=== PATIENT | male | born 1955 | race Caucasian/White ===

== ENCOUNTER 2019-01-20 11:49 | Outpatient (CLI) | payer BC, SELFPAY ==
[2019-01-21 15:33] LABS: Free PSA/PSA Ratio 0.14 ratio
== END 2019-01-20 12:09 ==
PROVIDERS: PCP Internal Medicine; Visit Provider Internal Medicine
DX: R97.20 Elevated prostate specific antigen [PSA] (principal)
CPT/HCPCS: 36415; 84154

== ENCOUNTER 2020-04-08 01:31 | Outpatient (CLI) | payer OTHER, SELFPAY ==
[2020-04-10 13:14] LABS: Free PSA/PSA Ratio 0.17 ratio
== END 2020-04-08 01:51 ==
PROVIDERS: PCP Internal Medicine; Visit Provider Internal Medicine
DX: R97.20 Elevated prostate specific antigen [PSA] (principal)
CPT/HCPCS: 36415; 84154

== ENCOUNTER 2020-05-25 11:14 | Outpatient (CLI) | payer OTHER, SELFPAY ==
[2020-05-27 14:03] LABS: PSA, Ultrasensitive 6.2 ng/mL (<= 4.5)
== END 2020-05-25 11:34 ==
PROVIDERS: PCP Internal Medicine; Visit Provider Surgery
DX: R97.20 Elevated prostate specific antigen [PSA] (principal)
CPT/HCPCS: 36415; 84153

== ENCOUNTER 2022-08-07 11:38 | Outpatient (CLI) | payer BC, SELFPAY ==
--- NOTE | 2022-08-07 11:15 | DI.RAD_ITS ---
Exam(s) XR KNEE LT 4V AP,LAT,KATERYNA,PAT EXAM: XR KNEE LT 4V AP,LAT,KATERYNA,PAT CLINICAL HISTORY: eval L knee pain - anterolateral. TECHNIQUE: 2D digital imaging was performed. Three views. COMPARISON: No exams were available for comparison FINDINGS: BONES: No acute fracture is present. No bony destructive lesion is seen. Minimal spurring at the art icular aspect of the patella. JOINTS: Joint spaces are maintained. The knee is normally aligned. No joint effusion is seen. SOFT TISSUE: Normal. IMPRESSION: Minimal patellofemoral degenerative changes. DATA REPOSITORY: RADIATION DOSE DELIVERED:
== END 2022-08-07 11:39 | disposition home or self-care (01) ==
LOC: DIORS 11:40
PROVIDERS: PCP Internal Medicine; Referring Provider Internal Medicine; Visit Provider Student in an Organized Health Care Education/Training Program
DX: M25.562 Pain in left knee (principal); M22.2X2 Patellofemoral disorders, left knee
CPT/HCPCS: 73564

== ENCOUNTER 2024-07-18 13:04 | Emergency (ER) | payer BC, SELFPAY ==
[2024-07-18 13:08] VITALS: BP 173/98; PULSE 85; RESP 18; TEMP 36.4; O2SAT 98
--- NOTE | 2024-07-18 13:15 | DI.RAD_ITS ---
Exam(s) XR RIBS LT W PA LAT CHEST EXAM: XR RIBS LT W PA LAT CHEST CLINICAL HISTORY: Fall, 1 month ago, re-injury 2 days ago TECHNIQUE: 2D digital imaging was performed. Seven images are obtained. COMPARISON: CR CHEST 2 VIEWS PA,LAT from 11/30/2012 FINDINGS: MEDIASTINUM: Normal. HEART: Normal. PULMONARY VASCULATURE: Normal. LUNGS: Clear. PLEURAL SPACE: No pleural effusion or pneumothorax. BONE:Within normal limits for the patient's age. LEFT RIBS: There are minimally displaced fractures involving the posterolateral aspects of the left 1 0th and 11th ribs. OTHER FINDINGS:Normal. IMPRESSION: 1. No acute pulmonary findings. 2. Minimally displaced left 10th and 11th rib fractures. 3. No pleural effusion or pneumothorax. DATA REPOSITORY: RADIATION DOSE DELIVERED:
--- NOTE | 2024-07-18 13:22 | ED.GENADUL_ITS ---
Discharge Plan Disposition Patient Disposition: Home Condition: Stable Discharge Details Clinical Impression: Fracture of two ribs of left side Primary Care Provider: STEPHEN PRATT ED Provider: Karen Pisano Home Meds and New Rx's Prescriptions: New lidocaine 5 % adhesive patch,medicated 1 patch topical DAILY Qty: 15 0RF Rx Instructions: leave on most painful area for up to 12 hrs hydrocodone-acetaminophen 5-325 mg tablet 1 tab PO Q8H PRN (Reason: pain) Qty: 3 0RF Rx Instructions: Please take 1 tablet by mouth 3 times a day as needed for moderate to severe pain. Please take with food no driving or operating heavy machinery. Continued balance of nature PO niacinamide 500 mg tablet 500 mg PO DAILY doxycycline hyclate 20 mg tablet 20 mg PO BID omeprazole [Prilosec] 20 mg capsule,delayed release(DR/EC) 20 mg PO DAILY ibuprofen [Advil] 200 MG tablet 200 mg PO PRN PRN Discharge Instructions Instructions: Rib fractures in adults Additional Instructions: It appears you have 2 broken ribs on the left side where you are having pain. #10 and 11. Please take the pain medication as directed for moderate to severe pain. Do not drive or operate heavy machinery while on this medication. Use the lidocaine patches daily. You may apply ice. Please be seen again sooner for any severe worsening shortness of breath or pain, productive cough or fever or any concerns. Follow up with primary care provider in 3-5 days for recheck. Return to ED sooner if any worsening or concerns. Please take Tylenol or Ibuprofen with food every 4-6 hours as needed for pain and swelling. Referrals: STEPHEN PRATT [Primary Care Provider] - 1 week HPI General Mode of arrival: ambulatory . Date/Time Provider Initiated Documentation: 07/18/24 13:05 . Limitations to Documentation: no limitations . Information obtained by: patient, RN notes reviewed and old records reviewed . HPI Narrative: 68-year-old male presents to the ER with a chief complaint of left posterior rib pain which is exacerbated after tripping up the stairs couple of days ago. He reports that approximately a month ago he fell while taking down some Halloween decorations landing on his rib cage. He suspects that he may have broken a rib at that time but he was never seen. He now reports increased pain, denies any shortness of breath lungs are clear to auscultation bilaterally he has been taking 40 mg of ibuprofen every 4 hours. Past medical history includes hyperlipidemia, Related Data Home Medications ?Medication ?Instructions ?Recorded ?Confirmed ibuprofen 200 mg tablet (Advil) 200 mg PO PRN PRN 11/30/12 07/18/24 omeprazole 20 mg capsule,delayed 20 mg PO DAILY 06/14/22 07/18/24 release (Prilosec) balance of nature PO 08/07/22 08/09/22 doxycycline hyclate 20 mg tablet 20 mg PO BID 08/07/22 07/18/24 niacinamide 500 mg tablet 500 mg PO DAILY 08/07/22 07/18/24 hydrocodone 5 mg-acetaminophen 325 1 tab PO Q8H PRN pain #3 tabs 07/18/24 mg tablet lidocaine 5 % topical patch 1 patch topical DAILY #15 ea 07/18/24 Previous Rx's ?Medication ?Instructions ?Recorded hydrocodone 5 mg-acetaminophen 325 1 tab PO Q8H PRN pain #3 tabs 07/18/24 mg tablet lidocaine 5 % topical patch 1 patch topical DAILY #15 ea 07/18/24 Allergies Allergy/AdvReac Type Severity Reaction Status Date / Time Penicillins Allergy unknown Verified 07/18/24 13:12 Phenothiazines AdvReac ? stiff Verified 07/18/24 13:26 neck prochlorperazine edisylate AdvReac neck Verified 07/18/24 13:26 (From Compazine) stiffness prochlorperazine maleate AdvReac neck Verified 07/18/24 13:26 (From Compazine) stiffness General Stated Complaint: Fall/Non TraumaCriteria KIRAN: 4 Review of Systems Respiratory Respiratory: Reports pain on inspiration Musculoskeletal Musculoskeletal: Reports as per HPI and Reports back pain (Left rib pain) Exam Narrative Exam Narrative: General: Well Developed, Awake and Alert, conversant. Skin: Warm and Dry Chest: No surface trauma. Nontender without crepitus or deformity. Lungs clear to ausculatation bilaterally. Tenderness with palpation to the left posterior ribs approximately around 05/30/12. Heart: RRR, no rubs, murmurs or gallop. Abdomen: No abrasions, ecchymosis, or surface trauma. Nondistended. Nontender to palpation no guarding, rebound, or rigidity. Course Vital Signs Vital signs: Vital Signs Temperature 36.4 C L 07/18/24 13:08 Pulse 85 07/18/24 13:08 Respiratory Rate 18 07/18/24 13:08 Blood Pressure 173/98 H 07/18/24 13:08 Pulse Oximetry 98 07/18/24 13:08 Temperature 36.4 C L 07/18/24 13:08 Temperature Source Oral 07/18/24 13:08 Pulse 85 07/18/24 13:08 Respiratory Rate 18 07/18/24 13:08 Respiratory Effort Normal, Non-Labored 07/18/24 13:13 Blood Pressure 173/98 H 07/18/24 13:08 Blood Pressure Position Sitting 07/18/24 13:08 Pulse Oximetry 98 07/18/24 13:08 Oxygen Delivery Method Room Air 07/18/24 13:08 Oxygen Flow Rate 0 07/18/24 13:08 Medical Decision Making 68-year-old male presents to the ER with chief complaint of left posterior rib pain. Does have a history of a fall. X-ray rib series ordered and lidocaine patch. X-rays show minimally displaced 10th and 11th rib fractures. Will give patient incentive spirometer give lidocaine patches and discussed on home care. Will give prescription for 3 tablets of hydrocodone for severe pain and a prescription for lidocaine patches. I did discuss x-ray results with patient who verbalized understanding. Discussed strict return instructions to return for any productive cough, fever severe worsening shortness of breath or pain or concerns. Patient verbalized understanding. This text was generated using [employer] dictation system, please disregard any oddities of phrase or misspellings. Quality:SDOH Health Related Social Needs: No Data to Display PFSH All Active Problems (Updated 07/18/24 @ 14:18 by Karen Pisano NP) Fracture of two ribs of left side (Acute) Iliotibial band friction syndrome of both knees (Acute) Medical History Elevated PSA Actinic keratosis Transient acantholytic dermatosis Hyperlipidemia Malignant neoplasm of skin Social History Smoking/Tobacco Use Status: Never Smoking risk assessment performed?: Yes Alcohol Intake: current Alcohol Intake frequency: a few times a week Drug use: Never Substance use type: does not use Do you feel safe at home: Yes Do you feel safe in your relationship?: Yes PAWSS Have you Been Recently Intoxicated or Drunk Within the Last 30 days?: No Have you Ever Experienced Previous Episodes of Alcohol Withdrawal?: No Have you ever Experienced Withdrawal Seizures?: No Have you ever Experienced Delirium Tremens(DT)s?: No Have you ever undergone Alcohol Rehabilitation Treatment (i.e, inpt ot outpatient treatment programs)?: No Have you ever Experienced Blackouts?: No Have you ever Combined Alcohol with other Downers within the last 90 days?: No Have you ever Combined Alcohol with any other Substance of Abuse during the last 90 days?: No Positive Blood Alcohol level on Presentation? [PCS.BAL]: No Evidence of Increased Autonomic Activity (i.e. HR>120, tremor, sweating, agitation, nausea)?: No Result: 0
[2024-07-18] MEDS: Lidocaine 5% Patch 1 PATCH TP (14:14)
== END 2024-07-18 14:37 | disposition home or self-care (01) ==
LOC: ER 14:19
PROVIDERS: Emergency Provider Registered Nurse Emergency; PCP Internal Medicine
DX: S22.42XA Multiple fractures of ribs, left side, initial encounter for closed fracture (principal); W10.9XXA Fall (on) (from) unspecified stairs and steps, initial encounter; Y93.01 Activity, walking, marching and hiking; Y92.89 Other specified places as the place of occurrence of the external cause
CPT/HCPCS: 99283; 71046; 71100

== ENCOUNTER 2024-11-12 12:47 | Outpatient (CLI) | payer OTHER, SELFPAY | END 2024-11-12 12:48 | disposition home or self-care (01) | LOC: LBO 12:47 | PROVIDERS: PCP Internal Medicine; Visit Provider Internal Medicine | DX: R97.20 Elevated prostate specific antigen [PSA] (principal) | CPT/HCPCS: 36415; 84153 ==

== ENCOUNTER 2025-06-10 16:39 | Outpatient (CLI) | payer OTHER, SELFPAY | END 2025-06-10 16:40 | disposition home or self-care (01) | LOC: LBO 16:40 | PROVIDERS: PCP Internal Medicine; Visit Provider Student in an Organized Health Care Education/Training Program | DX: R97.20 Elevated prostate specific antigen [PSA] (principal) | CPT/HCPCS: 36415; 84153 ==